=== PATIENT | female | born 1960 | race Caucasian/White ===

== ENCOUNTER 2017-07-04 08:25 | Outpatient (CLI) | payer OTHER ==
--- NOTE | 2017-07-04 10:12 | RAD ---
TWO VIEW CHEST: INDICATIONS: Malignant neoplasm. COMPARISON: 05/10/2017 FINDINGS: Redemonstration of a right suprahilar mass, reduced in volume at 5.9 cm, compared to prior maximum d imension of 6.6 cm, in a similar location. The lungs remain hyperinflated. The cardiomediastinal s ilhouette is stable. IMPRESSION: Slight interval reduction in volume of mass like opacity in the right suprahilar region. This could either relate to an interval decrease in the volume of the tumor or, alternatively, a reduced compo nent of associated atelectasis. Continued followup is indicated. POS: JOSTIN
== END 2017-07-04 08:26 | disposition home or self-care (01) ==
LOC: MADRAD 08:25
PROVIDERS: ATTEND Internal Medicine Medical Oncology
DX: C34.11 Malignant neoplasm of upper lobe, right bronchus or lung (principal); J98.11 Atelectasis
CPT/HCPCS: 71020